=== PATIENT | male | born 1950 | race Caucasian/White ===

== ENCOUNTER → 2017-03-29 | Outpatient (CLI) | payer OTHER | LOC: FIMAGING 08:26 | PROVIDERS: ATTEND Family Medicine | DX: R94.31 Abnormal electrocardiogram [ECG] [EKG] (principal); R63.4 Abnormal weight loss; T75.89XA Other specified effects of external causes, initial encounter; Z79.899 Other long term (current) drug therapy ==

== ENCOUNTER → 2017-07-30 | Outpatient (CLI) | payer OTHER | LOC: BHFA 08:30 | PROVIDERS: ATTEND Internal Medicine Cardiovascular Disease | DX: I44.7 Left bundle-branch block, unspecified (principal) ==